=== PATIENT | female | born 1960 | race Caucasian/White ===

== ENCOUNTER 2017-06-06 13:32 | Emergency (ER) | payer BC ==
--- NOTE | 2017-06-06 13:56 | ER Document Report ---
ED Medical Screen (RME) - General Chief Complaint: Leg Pain Stated Complaint: LEG PAIN Time Seen by Provider: 06/06/17 13:55 Notes: pt has actively bleeding varicosity. pt allergic to lidocaine. TRAVEL OUTSIDE OF THE [place] IN LAST 30 DAYS: No - Related Data Allergies/Adverse Reactions: aspirin Allergy (Verified 06/06/17 13:37) codeine Allergy (Verified 06/06/17 13:37) cortisone Allergy (Verified 06/06/17 13:37) NSAIDS (Non-Steroidal Anti-Inflamma Allergy (Verified 06/06/17 13:37) Penicillins Allergy (Verified 06/06/17 13:37) Past Medical History - Social History Chew tobacco use (# tins/day): No Frequency of alcohol use: None Drug Abuse: None Renal/ Medical History: Denies: Hx Peritoneal Dialysis Past Surgical History: Reports: Hx Oral Surgery - Immunizations Hx Diphtheria, Pertussis, Tetanus Vaccination: Yes Physical Exam - Vital signs Vitals: Temp Pulse Resp BP Pulse Ox 97.9 F 90 18 139/100 H 96 06/06/17 13:38 06/06/17 13:38 06/06/17 13:38 06/06/17 13:38 06/06/17 13:38 Course - Vital Signs Vital signs: Temp Pulse Resp BP Pulse Ox 97.9 F 90 18 139/100 H 96 06/06/17 13:38 06/06/17 13:38 06/06/17 13:38 06/06/17 13:38 06/06/17 13:38
[2017-06-06] MEDS ORDERED: THROMBIN (BOVINE) TOPICAL 5000 UNIT VIAL TP ONE (14:23)
[2017-06-06] MEDS ORDERED: TRANEXAMIC ACID INJ/PF 1,000 MG/10 ML SDV IV ONE (14:24)
--- NOTE | 2017-06-06 15:54 | ER Document Report ---
ED Extremity Problem, Lower - General Chief Complaint: Leg Pain Stated Complaint: LEG PAIN Time Seen by Provider: 06/06/17 13:55 Notes: The patient is a 56-year-old female, past medical history varicose veins, presents after she noticed bleeding from her right leg after she nicked it on a hard object. She applied some pressure, but it is still bleeding. She is scheduled for varicose vein surgery next week at [facility]. Denies shortness of breath, lightheadedness, chest pain, blood thinner use or any other wounds. TRAVEL OUTSIDE OF THE [place] IN LAST 30 DAYS: No - Related Data Allergies/Adverse Reactions: aspirin Allergy (Verified 06/06/17 13:37) codeine Allergy (Verified 06/06/17 13:37) cortisone Allergy (Verified 06/06/17 13:37) NSAIDS (Non-Steroidal Anti-Inflamma Allergy (Verified 06/06/17 13:37) Penicillins Allergy (Verified 06/06/17 13:37) Past Medical History - General Information source: Patient - Social History Smoking Status: Former Smoker Chew tobacco use (# tins/day): No Frequency of alcohol use: None Drug Abuse: None Family History: Reviewed & Not Pertinent Renal/ Medical History: Denies: Hx Peritoneal Dialysis Past Surgical History: Reports: Hx Oral Surgery - Immunizations Hx Diphtheria, Pertussis, Tetanus Vaccination: Yes Review of Systems - Review of Systems Notes: REVIEW OF SYSTEMS: CONSTITUTIONAL: -fevers, -chills EENT: -eye pain, -difficulty swallowing, -nasal congestion CARDIOVASCULAR:-chest pain, -syncope. RESPIRATORY: -cough, -SOB GASTROINTESTINAL: -abdominal pain, - nausea, -vomiting, -diarrhea GENITOURINARY: -dysuria, -hematuria MUSCULOSKELETAL: +right leg bleeding from wound, -back pain, -neck pain SKIN: -rash or skin lesions. HEMATOLOGIC: -easy bruising or bleeding. LYMPHATIC: -swollen, enlarged glands. NEUROLOGICAL: -altered mental status or loss of consciousness, -headache, - neurologic symptoms PSYCHIATRIC: -anxiety, -depression. ALL OTHER SYSTEMS REVIEWED AND NEGATIVE. Physical Exam - Vital signs Vitals: Temp Pulse Resp BP Pulse Ox 97.9 F 90 18 139/100 H 96 06/06/17 13:38 06/06/17 13:38 06/06/17 13:38 06/06/17 13:38 06/06/17 13:38 - Notes Notes: PHYSICAL EXAMINATION: GENERAL: Well-appearing, well-nourished and in no acute distress. HEAD: Atraumatic, normocephalic. EYES: Pupils equal round and reactive to light, extraocular movements intact, sclera anicteric, conjunctiva are normal. ENT: nares patent, oropharynx clear without exudates. Moist mucous membranes. NECK: Normal range of motion, supple without lymphadenopathy LUNGS: Breath sounds clear to auscultation bilaterally and equal. No wheezes rales or rhonchi. HEART: Regular rate and rhythm without murmurs ABDOMEN: Soft, nontender, normoactive bowel sounds. No guarding, no rebound. No masses appreciated. EXTREMITIES: Right leg with varicose veins and small puncture wound without active bleeding. Normal range of motion, no pitting or edema. No cyanosis. NEUROLOGICAL: Cranial nerves grossly intact. Normal speech, normal gait. Normal sensory and motor exams. PSYCH: Normal mood, normal affect. SKIN: Warm, Dry, normal turgor, no rashes or lesions noted. Course - Re-evaluation Re-evalutation: Patient's wound is no longer bleeding prior to my evaluation after she applied pressure dressing and Simone wrap. Silver nitrate applied to wound and 4 x 4's soaked with TXA and Thrombin applied to the wound to ensure that it does not begin bleeding again. Instructed her to follow-up with her vascular surgeon for further evaluation and treatment. Given return precautions and she understands. - Vital Signs Vital signs: Temp Pulse Resp BP Pulse Ox 97.9 F 73 18 123/90 H 100 06/06/17 13:38 06/06/17 16:02 06/06/17 13:38 06/06/17 16:02 06/06/17 16:02 Discharge - Discharge Clinical Impression: Bleeding from varicose vein Condition: Stable Disposition: HOME, SELF-CARE Additional Instructions: Keep the pressure dressing in place and follow-up with your vascular surgeon. Return to the ER if you have any worsening bleeding or any other concerns. Forms: Elevated Blood Pressure Referrals: DON WHYTE MD [Primary Care Provider] - Follow up as needed
[2017-06-06 17:00] VITALS: BP 123/90
== END 2017-06-06 16:00 | disposition home or self-care (01) ==
LOC: ER 13:32
DX: I83.891 Varicose veins of right lower extremity with other complications (principal); Z88.6 Allergy status to analgesic agent; Z88.0 Allergy status to penicillin
CPT/HCPCS: 99283; 96374; J3490 ×2

== ENCOUNTER → 2020-03-17 | Outpatient (CLI) | payer BC ==
--- NOTE | 2020-03-18 08:33 | RADIOLOGY REPORT (SQ) ---
EXAM DESCRIPTION: MRI LT UPPER EXTREMITY WITHOUT IMAGES COMPLETED DATE/TIME: 03/17/2020 3:10 pm REASON FOR STUDY: M25.532 PAIN IN LEFT WRIST M25.532 PAIN IN LEFT WRIST M25.522 PAIN IN LEFT ELBOW COMPARISON: None. TECHNIQUE: Left wrist images acquired and stored on PACS. Multiplanar images include fat sensitive sequences as T1, fluid sensitive sequences as FST2/STIR, cartilage sensitive sequences as FSPD, gradi ent echo sequences. LIMITATIONS: Mildly limiting motion. FINDINGS: BONE MARROW: Abnormal signal and the proximal to mid scaphoid. Suspect nondisplaced fract ure and contusion here. Patchy edema in the capitate and lunate. No other fractures are detected. Artifact along the thumb base. Metallic blooming artifact along the metacarpal here from prior surge ry. Trapezium may have been resected. CARPAL ALIGNMENT AND ARTICULATION: Limited assessment. Dorsiflexion noted. EFFUSION: Mild joint effusion. SCAPHOLUNATE LIGAMENT: Intact without tear. LUNATE-TRIQUETRAL LIGAMENT: Intact without tear. TFC COMPLEX: Radial and ulnar attachments normal. Meniscus intact. Extensor carpi ulnaris tendon norm al without tendinopathy. EXTRINSIC LIGAMENTS AND DISTAL RADIO-ULNAR JOINT: Dorsal and volar distal RUJ intact without subluxat ion of the distal ulna. 1-6 EXTENSOR COMPARTMENTS: Normal. Specifically no tendinopathy of the abductor pollicis longus or ex tensor pollicis brevis to suggest de Quervain's Syndrome. CARPAL TUNNEL AND MEDIAN NERVE: Normal volume and morphology of the carpal tunnel proximally at the l evel of the radiocarpal joint and distally at the hook of the hamate. No thickening or signal alterat ion of the median nerve. OTHER: No other significant finding. IMPRESSION: 1. Scaphoid fracture. 2. Other findings as above. TECHNICAL DOCUMENTATION: JOB ID: [id number] 2010 [employer]- All Rights Reserved Reading location - IP/workstation name: [email or web address]
--- NOTE | 2020-03-18 08:38 | RADIOLOGY REPORT (SQ) ---
EXAM DESCRIPTION: MRI LT UPPER EXTREMITY WITHOUT IMAGES COMPLETED DATE/TIME: 03/17/2020 3:10 pm REASON FOR STUDY: M25.522 PAIN IN LEFT ELBOW M25.532 PAIN IN LEFT WRIST M25.522 PAIN IN LEFT ELBOW COMPARISON: None. TECHNIQUE: Left elbow images acquired and stored on PACS. Multiplanar images to include fat sensiti ve sequences as T1, fluid sensitive sequences as T2/STIR, cartilage sensitive sequences as FSPD, and gradient echo sequences. LIMITATIONS: None. FINDINGS: BONE MARROW: Edema in the radial head and neck. Minimally impacted radial head fracture w ithout significant articular step-off. JOINT EFFUSION: Joint effusion without loose bodies. ARTICULAR SURFACES: Normal. MEDIAL COLLATERAL LIGAMENT COMPLEX: Intact without edema or tear. MEDIAL EPICONDYLE AND COMMON FLEXOR TENDON: No tendinopathy. No partial or full-thickness tear. LATERAL COLLATERAL LIGAMENT: Minimal signal along the anterior fibers of the lateral collateral. LATERAL EPICONDYLE AND COMMON EXTENSOR TENDON: No tendinopathy. No partial or full-thickness tear. LATERAL ULNAR COLLATERAL LIGAMENT: Intact without evidence for tear. BICEPS TENDON: Intact. No partial or full-thickness tendon tear. No muscle edema. TRICEPS TENDON: Intact. ULNAR NERVE: Well-visualized without edema or encroachment. ADJACENT SOFT TISSUES: Mild metallic artifact along the lateral elbow, presumed prior surgery. OTHER: No other significant finding. IMPRESSION: 1. Radial head fracture. TECHNICAL DOCUMENTATION: JOB ID: [id number] 2010 [employer]- All Rights Reserved Reading location - IP/workstation name: [email or web address]
== END ==
LOC: RAD 13:55
PROVIDERS: ATTEND Orthopaedic Surgery
DX: M25.532 Pain in left wrist (principal); M25.522 Pain in left elbow